=== PATIENT | male | born 1945 | race Hispanic/Latino ===

== ENCOUNTER → 2022-09-12 | Outpatient (CLI) | payer OTHER | END | disposition home or self-care (01) | LOC: RAH 08:56 | PROVIDERS: ATTEND Internal Medicine | DX: N28.1 Cyst of kidney, acquired (principal); K76.89 Other specified diseases of liver; R94.5 Abnormal results of liver function studies | CPT/HCPCS: 76700 ==

== ENCOUNTER → 2023-01-09 | Outpatient (CLI) | payer OTHER ==
[~2023-01-09] MED LIST: ALBUMIN (HUMAN) 25% 200 ML IV SCH
[2023-01-09 11:30] LABS: BASOPHILS % (AUTO) 0.9 % (0.0-5.0); EOSINOPHILS % (AUTO) 1.7 % (0.0-8.0); HEMATOCRIT 31.7 % (42-54); LYMPHOCYTES % (AUTO) 21.6 % (21.0-51.0); MEAN CORPUSCULAR VOLUME 94.3 fL (79-99); MONOCYTES % (AUTO) 12.1 % (3.0-13.0); NEUTROPHILS % (AUTO) 63.5 % (40.0-77.0); NUCLEATED RED BLOOD CELLS 1.5 % (0.0-0.19); PLATELET COUNT (AUTO) 226 K/uL (130-400); RED BLOOD CELL COUNT(AUTO) 3.36 MIL/uL (4.50-6.20); RED CELL DISTRIBUTION WIDTH 24.3 % (11.0-15.5); WHITE BLOOD COUNT (AUTO) 4.6 K/uL (4.8-10.8)
[2023-01-09 11:39] LABS: INR 1.23 (0.85-1.15); PROTHROMBIN TIME 13.3 SEC (9.6-11.6)
[2023-01-09 11:41] LABS: PARTIAL THROMBOPLASTIN TIME 42.1 SEC (26.3-35.5)
[2023-01-09 11:47] LABS: ALBUMIN 1.6 g/dL (3.5-5.0); POTASSIUM 5.6 mmol/L (3.5-5.1); TOTAL PROTEIN, SERUM 10.5 g/dL (6.0-8.3)
[2023-01-09 16:47] LABS: BODY FLUID RBC 4805 /cu. mm.; BODY FLUID WBC 274 /cu. mm.
[2023-01-09 16:56] LABS: BF LYMPHOCYTE 17 %; BF OTHER CELLS 5
[2023-01-09 16:59] LABS: APPEARANCE BODY FLUID CLOUDY (CLEAR); COLOR,BODY FLUID DARK YELLOW (LT YELLOW); SPECIMENTYPE,BODY FLUID ASCITES
[2023-01-09 17:10] LABS: ALBUMIN,BODY FLUID < 0.6 g/dL
[2023-01-09 18:07] LABS: TOTAL VOLUME,BODY FLUID 3500 mL
== END | disposition home or self-care (01) ==
LOC: RAH 09:26
PROVIDERS: ATTEND Internal Medicine Gastroenterology
DX: R18.8 Other ascites (principal); K74.69 Other cirrhosis of liver; I10 Essential (primary) hypertension; E78.00 Pure hypercholesterolemia, unspecified; M19.90 Unspecified osteoarthritis, unspecified site; R94.5 Abnormal results of liver function studies; R14.0 Abdominal distension (gaseous); D50.9 Iron deficiency anemia, unspecified; E13.9 Other specified diabetes mellitus without complications; E78.9 Disorder of lipoprotein metabolism, unspecified; Z79.01 Long term (current) use of anticoagulants; Z86.010 Personal history of colon polyps; Z98.890 Other specified postprocedural states
CPT/HCPCS: 49083; 84157; 80053; 85025; 89051; 85610; 85730; 87071; 87076; 87205; 82042; 36415; 88108; 88305; C1729; 96365

== ENCOUNTER → 2023-01-16 | Outpatient (CLI) | payer OTHER ==
[~2023-01-16] MED LIST changes: +LIDOCAINE HCL 1% 20 ML VIAL ONE
[2023-01-16 12:43] LABS: APPEARANCE BODY FLUID SLIGHTLY CLOUDY (CLEAR); SPECIMENTYPE,BODY FLUID ASCITES; TOTAL VOLUME,BODY FLUID 2400 mL
[2023-01-16 12:44] LABS: COLOR,BODY FLUID YELLOW (LT YELLOW)
[2023-01-16 12:54] LABS: BODY FLUID RBC 4013 /cu. mm.; BODY FLUID WBC 314 /cu. mm.
[2023-01-16 12:58] LABS: ALBUMIN,BODY FLUID 0.2 g/dL
[2023-01-16 13:04] LABS: BF LYMPHOCYTE 45 %; BF MESOTHELIAL 43 %; BF MONOCYTE 8 %
== END | disposition home or self-care (01) ==
LOC: RAH 07:35
PROVIDERS: ATTEND Internal Medicine Gastroenterology
DX: R18.8 Other ascites (principal); K74.69 Other cirrhosis of liver; I10 Essential (primary) hypertension; E78.00 Pure hypercholesterolemia, unspecified; M19.90 Unspecified osteoarthritis, unspecified site; R94.5 Abnormal results of liver function studies; R14.0 Abdominal distension (gaseous); D50.9 Iron deficiency anemia, unspecified; E13.9 Other specified diabetes mellitus without complications; E78.9 Disorder of lipoprotein metabolism, unspecified; Z79.01 Long term (current) use of anticoagulants; Z86.010 Personal history of colon polyps; Z98.890 Other specified postprocedural states; Z79.899 Other long term (current) drug therapy
CPT/HCPCS: 49083; 84157; 89051; 87071; 87076; 87205; 82042; 88108; 88305; P9046; C1729

== ENCOUNTER → 2023-01-23 | Outpatient (CLI) | payer OTHER ==
[~2023-01-23] MED LIST changes: -LIDOCAINE HCL 1% 20 ML VIAL ONE
[2023-01-23 13:41] LABS: APPEARANCE BODY FLUID CLEAR (CLEAR); COLOR,BODY FLUID YELLOW (LT YELLOW); SPECIMENTYPE,BODY FLUID ASCITES
[2023-01-23 13:42] LABS: TOTAL VOLUME,BODY FLUID 2200 mL
[2023-01-23 13:49] LABS: BF LYMPHOCYTE 38 %; BF MESOTHELIAL 32 %; BF MONOCYTE 16 %
[2023-01-23 14:31] LABS: BODY FLUID RBC 790 /cu. mm.; BODY FLUID WBC 162 /cu. mm.
[2023-01-23 15:18] LABS: ALBUMIN,BODY FLUID < 0.6 g/dL
== END ==
LOC: RAH 07:48
PROVIDERS: ATTEND Internal Medicine Gastroenterology
DX: R18.8 Other ascites (principal)
CPT/HCPCS: 49083; 84157; 89051; 87071; 87076; 87205; 82042; C1729

== ENCOUNTER → 2023-02-13 | Outpatient (CLI) | payer OTHER ==
[2023-02-13 09:02] LABS: BASOPHILS % (AUTO) 0.5 % (0.0-5.0); EOSINOPHILS % (AUTO) 0.2 % (0.0-8.0); HEMATOCRIT 34.9 % (42-54); LYMPHOCYTES % (AUTO) 11.8 % (21.0-51.0); MEAN CORPUSCULAR HEMOGLOBIN 33.9 pg (27.0-33.0); MEAN CORPUSCULAR HGB CONC 34.7 g/dL (32.0-36.0); MEAN CORPUSCULAR VOLUME 97.8 fL (79-99); MONOCYTES % (AUTO) 8.1 % (3.0-13.0); NEUTROPHILS % (AUTO) 79.2 % (40.0-77.0); NUCLEATED RED BLOOD CELLS 1.4 % (0.0-0.19); PLATELET COUNT (AUTO) 160 K/uL (130-400); RED BLOOD CELL COUNT(AUTO) 3.57 MIL/uL (4.50-6.20); RED CELL DISTRIBUTION WIDTH 23.7 % (11.0-15.5); WHITE BLOOD COUNT (AUTO) 4.3 K/uL (4.8-10.8)
[2023-02-13 09:13] LABS: INR 1.56 (0.85-1.15); PROTHROMBIN TIME 17.6 SEC (9.6-11.6)
[2023-02-13 09:14] LABS: PARTIAL THROMBOPLASTIN TIME 68.6 SEC (26.3-35.5)
[2023-02-13 09:35] LABS: CREATININE 4.3 mg/dL (0.5-1.5); POTASSIUM 3.5 mmol/L (3.5-5.1); TOTAL PROTEIN, SERUM 9.6 g/dL (6.0-8.3)
[2023-02-13 12:56] LABS: APPEARANCE BODY FLUID CLEAR (CLEAR); COLOR,BODY FLUID LT YELLOW (LT YELLOW); SPECIMENTYPE,BODY FLUID ASCITES
[2023-02-13 12:57] LABS: TOTAL VOLUME,BODY FLUID 3500 mL
[2023-02-13 12:58] LABS: BODY FLUID RBC 10 /cu. mm.; BODY FLUID WBC 82 /cu. mm.
[2023-02-13 13:03] LABS: ALBUMIN,BODY FLUID < 0.6 g/dL
[2023-02-13 13:56] LABS: BF LYMPHOCYTE 72 %; BF MONOCYTE 6 %
== END | disposition home or self-care (01) ==
LOC: RAH 08:14
PROVIDERS: ATTEND Internal Medicine Gastroenterology
DX: R18.8 Other ascites (principal); I10 Essential (primary) hypertension; E78.00 Pure hypercholesterolemia, unspecified; M19.90 Unspecified osteoarthritis, unspecified site; Z79.01 Long term (current) use of anticoagulants; Z79.899 Other long term (current) drug therapy
CPT/HCPCS: 49083; 96365; 84157; 80053; 85025; 89051; 85610; 85730; 87071; 87076; 87205; 82042; 36415; P9046; C1729